=== PATIENT | female | born 1960 | race Caucasian/White ===

== ENCOUNTER 2022-03-08 18:11 | Emergency (ER) | payer OTHER ==
[2022-03-08] MEDS ORDERED: XYLOCAINE 1% HCL 20 ML MDV ONE (18:50)
[2022-03-08] MEDS ORDERED: Adacel Vial IM ONE ×2 (19:05→19:15)
--- NOTE | 2022-03-08 19:05 | ERPHSYRPT ---
- History of Present Illness Time Seen by Provider: 03/08/22 18:19 Source: patient Exam Limitations: no limitations Patient Subjective Stated Complaint: Laceration Triage Nursing Assessment: Patient ambulated back to ED and transferred self to bed. Patient A+O X 3. Patient's skin pink, warm and dry. Patient complains of lacerations to right hand 2nd and 3rd digit. Patient states she was doing dishes when she accidently grabbed a hold of a knife cutting her fingers. Patient has 2, 1cm lacerations noted to right hand 2nd digit and 1 cm laceration noted to right hand 3rd digit. Patient complains of pain 4/10. Physician History: 62-year-old female right-handed dominant presented in the ER with chief complaint of laceration to right second and third digit while cleaning dishes and accidentally hit the knife. There was bleeding initially, stopped with applying pressure. She is complaining of mild to moderate sharp pain with movements and palpation. No tingling or numbness of the fingertips. Timing/Duration: hour(s) (0.5), sudden Quality: painful Severity: mild, moderate Location: extremities Possible Causes: other Allergies/Adverse Reactions: nitrofurantoin [From Macrobid] Allergy (Verified 03/08/22 18:15) Penicillins Allergy (Verified 03/08/22 18:15) pentazocine [From Talwin] Allergy (Verified 03/08/22 18:15) silver nitrate Allergy (Verified 03/08/22 18:15) Home Medications: Citalopram Hydrobromide [Citalopram HBr] 10 mg PO HS 05/25/17 [History] Levothyroxine Sodium [Synthroid] 112 mcg PO 0600 05/25/17 [History] Hx Tetanus, Diphtheria Vaccination/Date Given: No Hx Influenza Vaccination/Date Given: No Hx Pneumococcal Vaccination/Date Given: No Immunizations Up to Date: Yes Travel Risk - International Travel Have you traveled outside of the country in past 3 weeks: No - Coronavirus Screening Are you exhibiting any of the following symptoms?: No Close contact with a COVID-19 positive Pt in past 14-21 Days: No - Vaccine Status Have you recieved a Covid-19 vaccination: No - Review of Systems Constitutional: No Symptoms Ears, Nose, & Throat: No Symptoms Respiratory: No Symptoms Cardiac: No Symptoms Musculoskeletal: Injury Skin: Skin Lesions Neurological: No Symptoms Endocrine: No Symptoms Hematologic/Lymphatic: No Symptoms Immunological/Allergic: No Symptoms - Past Medical History Pertinent Past Medical History: Yes Neurological History: No Pertinent History ENT History: No Pertinent History Cardiac History: Other Respiratory History: No Pertinent History Endocrine Medical History: Hypothyroidism Musculoskeletal History: Arthritis GI Medical History: GI Bleed History: Other Psycho-Social History: Depression Female Reproductive Disorders: No Pertinent History Other Medical History: KIDNEY STONE, ANEMIA. Pituitary tumor and sx x3 - Past Surgical History Past Surgical History: Yes Neuro Surgical History: No Pertinent History Cardiac: No Pertinent History Respiratory: No Pertinent History Gastrointestinal: Other Genitourinary: No Pertinent History Musculoskeletal: Orthopedic Surgery Female Surgical History: No Pertinent History Other Surgical History: GASTRIC BYPASS, 3 PITUITARY ADENOMA - Social History Smoking Status: Former smoker Exposure to second hand smoke: No Drug Use: none Patient Lives Alone: No - Nursing Vital Signs Nursing Vital Signs: Initial Vital Signs Temperature 97.6 F 03/08/22 18:17 Pulse Rate 72 03/08/22 18:17 Respiratory Rate 18 03/08/22 18:17 Blood Pressure 136/79 03/08/22 18:17 O2 Sat by Pulse Oximetry 98 03/08/22 18:17 Pain Scale Pain Intensity 4 - Physical Exam General Appearance: no apparent distress Ears, Nose, Throat Exam: normal ENT inspection Neck Exam: normal inspection, full range of motion Respiratory Exam: normal breath sounds, lungs clear Cardiovascular Exam: regular rate/rhythm, normal heart sounds Extremity Exam: normal range of motion, tenderness, other (Superficial laceration right second digit 2 cm at dorsal aspect of middle phalanx. Intact distal interphalangeal joint range of motion. Also superficial cut on the distal phalanx. Laceration on the third digit distal interphalangeal joint area on dorsal aspect 1 cm. Intact range of motion.) Neurologic Exam: alert, oriented x 3, cooperative Skin Exam: normal color SpO2 Interpretation: normal SpO2: 98 O2 Delivery: Room Air Procedures - Laceration/Wound Repair Right Finger Time of Procedure: 18:43 Wound Location: Right, hand Wound Length (cm): 3 Wound's Depth, Shape: into muscle Wound Explored: clean Irrigated: Yes Hibiclens Prep: Yes Anesthesia: 1% Lidocaine Volume Anesthetic (ccs): 4 Wound Repaired With: sutures Suture Size/Type: 4-0, nylon Number of Sutures: 5 Sterile Dressing Applied?: Yes Splint Applied?: Yes Type of Splint Applied: aluminum Ordered Tests: Medication Summary Discontinued Medications Generic Name Dose Route Start Last Admin Trade Name Gerald PRN Reason Stop Dose Admin Lidocaine HCl Confirm 03/08/22 18:50 Lidocaine Hcl 1% 20 Ml Mdv 20 Ml Ml Administered 03/08/22 18:51 Dose 1 ml .ROUTE .STK-MED ONE - Progress Progress: improved Progress Note: 03/08/22 19:08 Laceration is repaired. Tetanus is updated. Recommended Tylenol/ibuprofen. Outpatient follow-up. - Departure Departure Disposition: Home Clinical Impression: Finger laceration Qualifiers: Encounter type: initial encounter Finger: unspecified finger Damage to nail status: without damage Foreign body presence: without foreign body Laterality: right Qualified Code(s): S61.219A - Laceration without foreign body of unspecified finger without damage to nail, initial encounter Condition: Stable Critical Care Time: No Referrals: KELLY SAINI MD [Primary Care Provider] - Follow Up with PCP/3 days Instructions: Laceration Repair With Stitches (DC) Additional Instructions: Keep it clean, Tylenol/ibuprofen as needed for pain. Follow-up with primary care for reevaluation, suture removal in 10 to 14 days. Return to ER ER for increasing pain swelling redness, difficulty movements, fever chills etc.
[2022-03-08 19:26] VITALS: BP 105/61; PULSE 65; O2SAT 95
== END 2022-03-08 19:31 | disposition home or self-care (01) ==
LOC: ED 18:11
DX: S61.210A Laceration without foreign body of right index finger without damage to nail, initial encounter (principal); S61.212A Laceration without foreign body of right middle finger without damage to nail, initial encounter; W26.0XXA Contact with knife, initial encounter; Y93.G1 Activity, food preparation and clean up; Y92.000 Kitchen of unspecified non-institutional (private) residence as the place of occurrence of the external cause; Z79.899 Other long term (current) drug therapy; Z28.310 Unvaccinated for COVID-19
CPT/HCPCS: 12002; 90471; 90715; 99283